=== PATIENT | male | born 1980 | race Caucasian/White ===

== ENCOUNTER 2016-05-14 | Emergency (ER) | payer OTHER | END 2016-05-14 10:50 | disposition home or self-care (01) ==

== ENCOUNTER 2017-12-16 10:14 | Emergency (ER) | payer OTHER ==
[2017-12-16 10:35] VITALS: BP 154/103
--- NOTE | 2017-12-16 13:28 | ED Physician Documentation ---
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 for 18 years. He has subacute depression. Fleeting thoughts of suicidal ideation without plan. He also wonders if he has ADD because for a long time he has trouble listening to people.) Review of Systems Constitutional: denies: Fever, Chills Cardiac: denies: Chest pain / pressure, Palpitations Respiratory: denies: Dyspnea, Cough PD PAST MEDICAL HISTORY - Past Medical History Cardiovascular: High cholesterol - Past Surgical History Past Surgical History: No - Present Medications Home Medications: Ambulatory Orders Medication Instructions Recorded Confirmed Ibuprofen [Motrin] 800 mg PO Q8H PRN #30 tablet 05/14/16 - Allergies Allergies/Adverse Reactions: Allergies Allergy/AdvReac Type Severity Reaction Status Date / Time codeine AdvReac Cramps Verified 12/16/17 10:35 - Social History Does the pt smoke?: No Smoking Status: Never smoker Does the pt drink ETOH?: Yes Does the pt have substance abuse?: No - Immunizations Immunizations are current?: Yes PD ED PE NORMAL - Vitals Vital signs reviewed: Yes - General General: Alert and oriented X 3, No acute distress - HEENT HEENT: PERRL, EOMI - Neuro Neuro: Alert and oriented X 3, sky cap 2-12 intact Eye Opening: Spontaneous Motor: Obeys Commands Verbal: Oriented GCS Score: 15 - Psych Psych: Normal mood, Normal affect Results - Vitals Vitals: Vital Signs - 24 hr 12/16/17 10:31 Temperature 36.6 C Heart Rate 90 Respiratory 16 Rate Blood Pressure 154/103 H O2 Saturation 96 Oxygen O2 Source Room air PD MEDICAL DECISION MAKING - ED course ED course: 37-year-old gentleman without acute complaints presents with depression. Some fleeting vague suicidal ideation without plan. We discussed potential admission which he declined. [place] evaluation and treatment. - Sepsis Event Vital Signs: Vital Signs - 24 hr 12/16/17 10:31 Temperature 36.6 C Heart Rate 90 Respiratory 16 Rate Blood Pressure 154/103 H O2 Saturation 96 Oxygen O2 Source Room air Departure - Departure Disposition: 01 Home, Self Care Clinical Impression: Depression Qualifiers: Depression Type: dysthymia Qualified Code(s): F34.1 - Dysthymic disorder Condition: Good Record reviewed to determine appropriate education?: Yes Instructions: ED Depression Comments: Return anytime if worse or if you feel like you do want to explore hospitalization. [place] and further evaluation and treatment. CALL [facility] [phone] OR [phone] OR [phone] Your blood pressure was elevated today on check into the emergency department. This does not mean that you have hypertension, it is a common phenomenon to come to the emergency department and have elevated blood pressure. I recommend that you see your primary care physician within the week to have it rechecked when you are feeling better.
== END 2017-12-16 13:34 | disposition home or self-care (01) ==
LOC: ED 10:14
DX: F34.1 Dysthymic disorder (principal); R45.851 Suicidal ideations; R03.0 Elevated blood-pressure reading, without diagnosis of hypertension
CPT/HCPCS: 80053; 80307; 80320; 80329; 83690; 84443; 85025; 99283

== ENCOUNTER 2017-12-26 13:52 | Emergency (ER) | payer OTHER ==
--- NOTE | 2017-12-26 14:40 | XRAY Report ---
Reason: trauma, fall. shoulder pain, limited rom. Procedure Date: 12/26/2017 Accession Number: [id number] / [id number] Procedure: XR - Shoulder 3 View LT CPT Code: FULL RESULT: EXAM: LEFT SHOULDER RADIOGRAPHY EXAM DATE: 12/26/2017 02:30 PM. CLINICAL HISTORY: Trauma, fall. Shoulder pain, limited rom. COMPARISON: None. TECHNIQUE: 3 views. FINDINGS: Bones: Normal. No fracture or bone lesion. Joints: The glenohumeral and acromioclavicular joints are normal. Soft tissues: Clear visualized lung. IMPRESSION: Normal shoulder radiography. [facility]
--- NOTE | 2017-12-26 15:22 | ED Physician Documentation ---
PD HPI UPPER EXT INJURY - Stated complaint Stated Complaint: LEFT SHOULDER INJ - Chief complaint Chief Complaint: Ext Problem - History obtained from History obtained from: Patient - History of Present Illness Location: Left, Shoulder Type of injury: Fall (playing kickball and landed onto left shoulder laterally.) Timing - onset: Yesterday Timing - duration: Days (1) Timing - details: Abrupt onset, Still present Worsened by: Moving, Palpating (at AC area) Associated symptoms: No: Weakness, Numbness, Tingling, Swelling Similar symptoms before: Has not had sx before Recently seen: Not recently seen Review of Systems Skin: denies: Abrasion (s), Laceration (s) Neurologic: denies: Focal weakness, Numbness PD PAST MEDICAL HISTORY - Past Medical History Cardiovascular: High cholesterol - Past Surgical History Past Surgical History: No - Present Medications Home Medications: Ambulatory Orders Medication Instructions Recorded Confirmed Ibuprofen [Motrin] 800 mg PO Q8H PRN #30 tablet 05/14/16 Ibuprofen [Motrin] 600 mg PO TID #30 tab 12/26/17 Tramadol HCl 50 mg PO Q6H PRN #20 tablet 12/26/17 - Allergies Allergies/Adverse Reactions: Allergies Allergy/AdvReac Type Severity Reaction Status Date / Time codeine AdvReac Cramps Verified 12/26/17 14:02 - Social History Does the pt smoke?: No Smoking Status: Never smoker Does the pt drink ETOH?: Yes Does the pt have substance abuse?: No - Immunizations Immunizations are current?: Yes PD ED PE NORMAL - Vitals Vital signs reviewed: Yes - General General: Alert and oriented X 3, No acute distress (guarded ROM of the left shoulder.), Well developed/nourished - Neck Neck: Supple, no meningeal sign, No bony TTP, No adenopathy - Derm Derm: Normal color, Warm and dry - Extremities Extremities: Other (Left shoulder tender at AC area mainly. No deformity. Pain with ROM of the shoulder but mostly abduction and extension. Not as much with internal rotation nor flexion. ) - Neuro Neuro: Alert and oriented X 3, No motor deficit, No sensory deficit, Normal speech Results - Vitals Vitals: Vital Signs - 24 hr 12/26/17 13:59 Temperature 35.7 C L Heart Rate 115 H Respiratory 20 Rate Blood Pressure 154/113 H O2 Saturation 97 Oxygen O2 Source Room air - Rads (name of study) left shoulder Radiology: Prelim report reviewed (no fractures nor separation. ) PD MEDICAL DECISION MAKING - ED course Complexity details: reviewed results, considered differential (his symptoms and exam are most c/w AC injury and not as much rotator cuff. ), d/w patient Departure - Departure Disposition: 01 Home, Self Care Clinical Impression: Fall from slip, trip, or stumble Qualifiers: Encounter type: initial encounter Qualified Code(s): W01.0XXA - Fall on same level from slipping, tripping and stumbling without subsequent striking against object, initial encounter Acromioclavicular (AC) joint injury Qualifiers: Encounter type: initial encounter Laterality: left Qualified Code(s): S49.92XA - Unspecified injury of left shoulder and upper arm, initial encounter Condition: Stable Record reviewed to determine appropriate education?: Yes Instructions: ED Sprain AC Joint Follow-Up: KIARA AMOR MD [Primary Care Provider] - Prescriptions: Ibuprofen [Motrin] 600 mg PO TID #30 tab Tramadol HCl 50 mg PO Q6H PRN #20 tablet PRN Reason: Pain Comments: Use the sling for the next week or so to reduce shoulder movement and discomfort. Do gentle range of motion of the shoulder several times a day however so does not stiffen up. No overhead reaching, push pull nor lifting with that arm for a week. Follow-up with your primary care next week, call tomorrow for an appointment. Ibuprofen 3 times a day. Add Tylenol if needed for pains. I think you have an injury of the AC joint more than the rotator cuff. This likely will take several weeks to improve. Discharge Date/Time: 12/26/17 15:53
[2017-12-26] MEDS ORDERED: IBUPROFEN 600 MG TABLET PO STA (15:38)
[2017-12-26] MEDS ORDERED: ACETAMINOPHEN 325 MG TABLET PO STA (15:38)
[2017-12-26 15:55] VITALS: BP 140/98
== END 2017-12-26 15:53 | disposition home or self-care (01) ==
LOC: ED 13:52
DX: S49.92XA Unspecified injury of left shoulder and upper arm, initial encounter (principal); W18.30XA Fall on same level, unspecified, initial encounter; Y93.69 Activity, other involving other sports and athletics played as a team or group
CPT/HCPCS: 73030; 99283; A9270

== ENCOUNTER 2020-10-25 10:10 | Outpatient (CLI) | payer OTHER ==
--- NOTE | 2020-10-25 14:08 | MRI Report ---
PROCEDURE: Shoulder LT W/O INDICATIONS: PAIN IN LEFT SHOULDER TECHNIQUE: Noncontrast oblique coronal T2 fast spin echo with fat saturation, oblique sagittal T1 spin echo and T2 fast spin echo with fat saturation, axial T1 spin echo and T2 fast spin echo with fat saturation t hrough the shoulder. COMPARISON: None. FINDINGS: Rotator cuff: Supraspinatus tendinopathy with partial thickness articular and bursal sided tear. No definite full-t hickness or large retracted defect. Infraspinatus tendinopathy with mild articular and bursal surface fraying although not well evaluated secondary to signal dropout on the coronal pulse sequence. Teres minor appears intact. Subscapularis tendon appears intact. No atrophy of the rotator cuff muscles. Bones and bursae: No bone marrow contusions or fractures. Moderate acromioclavicular joint degeneration. The acromion demonstrates conventional anatomy, without an os acromiale. Moderate subacromial/subdeltoid bursal fluid is present. Capsule and soft tissues: Labrum: Incidental sublabral foramen. Ill-defined tear of the anteroinferior segment, with small vinod cent 2-3 mm paralabral cysts seen on image 18/501. There is mild degenerative segmental change in the adjacent glenoid. The inferior labrum is not well seen due to signal dropout on the coronal pulse se quences. The inferior glenohumeral ligament is also not well seen. Biceps: Long head biceps tendon appears intact. Rotator interval: Normal signal intensity. Coracohumeral ligament: Intact. IMPRESSION: Partial thickness rotator cuff tear as above. No muscle atrophy seen. Moderate subacromial-subdeltoid bursitis Ill-defined signal changes likely reflecting chronic tear of the anteroinferior segment of the labrum with adjacent small paralabral cysts. Suboptimal evaluation secondary to signal dropout on the coronal pulse sequence as described above. Reviewed by: Cesar Anand MD on 10/25/2020 2:06 PM PDT Approved by: Cesar Anand MD on 10/25/2020 2:06 PM PDT Station ID: [id number]
== END 2020-10-25 10:11 | disposition home or self-care (01) ==
LOC: DI 10:10
DX: M75.112 Incomplete rotator cuff tear or rupture of left shoulder, not specified as traumatic (principal); M75.52 Bursitis of left shoulder

== ENCOUNTER 2020-11-04 10:29 | Outpatient (CLI) | payer OTHER ==
[2020-11-04 11:22] VITALS: BP 136/90
--- NOTE | 2020-11-04 11:22 | SLEEP CARE CONSULTATION ---
Information from patient questionnaire entered by Neetu Mares. I have reviewed and concur with the information entered by Neetu Mares. This document represents the service I personally performed and the decisions made by me, Alysha Castillo ARNP. History of Present Illness Service Date and Time: 11/04/2020 1029 Reason for Visit: New patient, Previously diagnosed sleep apnea (), sleep apnea on CPAP therapy Chief Complaint: reports: Unrefreshed sleep, Snoring, Excessive daytime sleepiness, Observed pauses in breathing, Fatigue, Frequent awakenings at night Date of Onset: 7 years Usual bedtime: 10-11 pm Time it takes to fall asleep: 15-20 minutes Snores at night: Yes Observed to quit breathing while asleep: Yes Sleeps alone due to snoring: No Number of times waking at night: 3-4 Reasons for waking at night: reports: Snoring, Pain, Other (noise) Toss, Turn, or Twitch while sleeping: Yes Recalls having dreams: Yes Usually gets out of bed at: 7-8 am Feels refreshed in the morning: No Morning headache: Yes (resolves after an hour or so; when doesn't use PAP) Sleepy or fatigued during the day: Yes Ever fallen asleep while driving: No Takes day naps: No Dreams during day naps: No Prior sleep studies: Yes Year and Where: unsure Additional HPI information: THEO PURI was diagnosed to have mild obstructive sleep apnea-hypopnea syndrom e, AHI 6.3, and comes in today to establish care for CPAP therapy. - Parasomnia Symptoms Ever been unable to move upon waking from sleep: No Walks in sleep: No Talks in sleep: Yes Ever felt weak in the knees when startled or emotional: Yes Bothered by creepy, crawly, restless sensations in legs: No Problems with memory or concentration: Yes CPAP Compliance Data Compliance data discussion: He has been on CPAP since about . He was using a nasal cushion mask. He was getting supplies from [facility] but has not gotten any for a long time. 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 He did not have supplies to be able to continue using his device. When able to use his device he states he would use nightly for 6-8 hours. He thinks his pressure is about 5 cmH2O but did not bring in his memory chip today. Subjective Missed days of use due to: reports: travel (deployment), other (supplies issues) Patient concerns: reports: mask discomfort (nasal cushion tends to irritate under nose; would like to try a full face mask). denies: aerophagia, air blowing in eyes, mask leak noise, condensation in mask/hose, nasal congestion, dry mouth, nose, throat, epistaxis, other Observed to snore while using device: No Current pressure setting perceived as: comfortable On therapy, patient: reports: sleeping better, awakening more refreshed, being more awake and alert during the day, more rested overall. denies: drowsiness while driving Initial Clinton Sleepiness Scale score: 15 (in 2020) Past Medical History Past Medical History: reports: Claustrophobia Social History The patient's occupation is a Active . Patient is and lives in [place]. Have you smoked in the past 12 months: No Cigarettes per day (20/pack): 20 Years of smokin Quit date: September 2020 Smoking Pack Years: 20.0 Alcohol use: Yes Alcohol amount and frequency: 2-3 drinks 2-3 times a week Caffeine use: Yes Caffeine amount and frequency: 40 oz of coffee daily Family History Family history of sleep disordered breathing: Yes (parents have sleep apnea, untreated; mom ) Family Hx Sleep Apnea: Mother: Snoring, Sleep apnea - Untreated, Father: Snoring, Sleep apnea - Untreated Allergies and Home Medications Drug allergies reviewed: Yes (codiene) Home medication list reviewed: Yes Allergy and home medication list: Wellbutrin, taken mostly to stop smoking Review of Systems Weight gain over past 5 years: 20 Weight loss over past 5 years: 48 Cardiovascular: reports: leg or foot swelling. denies: high blood pressure Gastrointestinal: reports: heartburn Neurological: reports: headaches, head trauma Psychiatric: reports: mood disorder Ear/Nose/Throat: reports: nasal congestion, sinus problems, wisdom teeth removed. denies: tonsillectomy Endocrine: reports: sluggishness, too hot or cold Musculoskeletal: reports: joint pain, neck pain, mobility problems Physical Exam Blood Pressure: 136/90 Cuff size: wrist Heart Rate: 82 O2 Saturation: 98 Height: 6 ft 2 in Weight: 209 lb Body Mass Index: 26.8 BMI Classification: Overweight Heart: regular rate and rhythm Lungs: clear bilaterally Impression and Plan 1. Obstructive Sleep Apnea-Hypopnea Syndrome, mild, with unknown treatment compliance and unknown apnea control. He comes in to re-establish care. The patient states that he has better sleep quality and is more rested overall when able on CPAP therapy. Theo has not been able to use his device because he does not have supplies and was on deployment since March. The DME company he was using in [facility] has since closed down and he has not been able to get any replacement supplies for over 7 months. We will fax order to [employer] for supplies. I will then have him follow up for a compliance visit. Theo did not bring in his memory card because he has not been able to use the device without supplies. I do not know his current pressure settings. We will try to obtain this as well. Patient wants to be able to continue use of his device as soon as possible because of its benefits. Patient voiced understanding and agreement with plan. Patient's apnea severity and rationale for treatment to reduce apnea, improve sleep quality and reduce cardiovascular and cerebrovascular events was reviewed. He was encouraged to try to lose weight to reduce apneas and improve his overall health. * Update supplies * Notify me if snoring with mask or feeling that the pressure is too much or too little * Attempt to lose weight * Call this office if any problems using CPAP * Return for follow up one month after he obtains supplies to restart therapy, or sooner if concerns arise Counseling Topics: Spare mask, Weight loss health impact Visit Type: In Office Time Spent with Patient (minutes): 30 Provider Statement: I spent 100% of the Face to Face Visit with the patient with greater than 50% spent counseling the patient and coordination of care.
== END 2020-11-04 10:30 | disposition home or self-care (01) ==
LOC: SC 10:29
PROVIDERS: ATTEND Nurse Practitioner Family
DX: G47.33 Obstructive sleep apnea (adult) (pediatric) (principal)
CPT/HCPCS: 99203; 99212

== ENCOUNTER 2020-12-05 13:00 | Outpatient (CLI) | payer OTHER ==
--- NOTE | 2020-12-05 13:45 | XRAY Report ---
PROCEDURE: Shoulder 3 View LT INDICATIONS: LEFT SHOULDER PAIN TECHNIQUE: 3 views of the shoulder were acquired. COMPARISON: None. FINDINGS: Bones: Small ossification is noted adjacent to the distal clavicle. Moderate acromioclavicular narrow ing. No suspicious bony lesions. Visualized ribs appear intact. Soft tissues: No suspicious soft tissue calcifications. IMPRESSION: Small ossification adjacent to the distal clavicle possibly avulsion injury in the setti ng of trauma. Reviewed by: Sandra Miranda MD on 12/05/2020 1:44 PM PDT Approved by: Sandra Miranda MD on 12/05/2020 1:44 PM PDT Station ID: [id number]
== END 2020-12-05 23:59 | disposition home or self-care (01) ==
LOC: DI.N 13:00
PROVIDERS: ATTEND Physician Assistant
DX: M25.512 Pain in left shoulder (principal); R93.6 Abnormal findings on diagnostic imaging of limbs

== ENCOUNTER 2022-01-16 06:18 | Emergency (ER) | payer OTHER ==
[2022-01-16] MEDS ORDERED: ALPRAZolam 0.25 MG TABLET PO STA (06:54)
--- NOTE | 2022-01-16 06:58 | ED Physician Documentation ---
PD HPI DYSPNEA - Stated complaint Stated Complaint: SOA - Chief complaint Chief Complaint: Resp - History obtained from History obtained from: Patient - Additional information Additional information: The patient comes to the emergency department chief complaint of dyspnea and anxiety. He states that he has been having episodes over the last 2 weeks that seem random, in which he either wakes up feeling as though he cannot breathe, or suddenly begins to feel anxious and short of breath. He states that the episodes last for some minutes and then resolved on their own. He states it seems as though he began to have this when the smoke was very heavy. He states they were camping and it was very smoky where they were and he woke up the middle of the night feeling so could not breathe. He states his has panic attacks and she gave him her inhaler and told him to try to breathe through it. Patient states he does not really feel like the inhaler physically helped him but feeling as though he could do something about the sense of shortness of breath was more helpful than anything. He states he also had another attack when he was under a building wearing a respirator. However, when he could see the daylight from under the building, he was able to calm himself down in bed as well. The patient states that today, he was in his car in line at the coffee stand and he suddenly began to feel a sensation of warmth that traveled up from his lower extremities and to his trunk and face. He states at the same time, he began to feel as though his heart was racing and that he was short of breath. He does note that he did not sleep well last night, and sometimes when he has slept very well he has not had the panic attacks at all. Patient has no prior history of panic attacks. He states that he retired from the [employer] nearly a year ago and actually is felt less stressed out and happier since doing so. He quit smoking after about 20 years last February but has not had any lung issues stemming from this that he knows of. He does smoke marijuana on a fairly regular basis. The patient has been working for the [employer] doing [employer] and is not aware of having had any chemical exposures. He states that occasionally he is exposed to situations where there have been rodents but he wears a respirator. He states he is otherwise fairly healthy denies any other complaints at this time. No swelling in his lower extremities. No history of DVT or PE. The patient states he is feeling quite a bit better after his episode this morning but does have a persistent sense that no matter how deep of breath he takes, he does not feel satisfied that he has had enough air. Review of Systems Ten Systems: 10 systems reviewed and negative Constitutional: reports: Reviewed and negative Eyes: reports: Reviewed and negative Ears: reports: Reviewed and negative Nose: reports: Reviewed and negative Throat: reports: Reviewed and negative Cardiac: reports: Palpitations Respiratory: reports: Dyspnea GI: reports: Reviewed and negative : reports: Reviewed and negative Skin: reports: Reviewed and negative Musculoskeletal: reports: Reviewed and negative Neurologic: reports: Reviewed and negative Psychiatric: reports: Reviewed and negative Endocrine: reports: Reviewed and negative Immunocompromised: reports: Reviewed and negative PD PAST MEDICAL HISTORY - Past Medical History Past Medical History: No Cardiovascular: High cholesterol - Past Surgical History Past Surgical History: No - Present Medications Home Medications: Ambulatory Orders Medication Instructions Recorded Confirmed Atorvastatin [Lipitor] 5 mg PO DAILY 01/16/22 01/16/22 - Allergies Allergies/Adverse Reactions: Allergies Allergy/AdvReac Type Severity Reaction Status Date / Time codeine AdvReac Cramps Verified 01/16/22 06:25 - Social History Does the pt smoke?: No Smoking Status: Never smoker Does the pt drink ETOH?: Yes Does the pt have substance abuse?: No - Immunizations Immunizations are current?: Yes PD ED PE NORMAL - Vitals Vital signs reviewed: Yes - General General: Alert and oriented X 3, No acute distress, Well developed/nourished - HEENT HEENT: Atraumatic, PERRL, EOMI, Moist mucous membranes - Neck Neck: Supple, no meningeal sign - Cardiac Cardiac: RRR, No murmur, Strong equal pulses - Respiratory Respiratory: No respiratory distress, Clear bilaterally - Abdomen Abdomen: Soft, Non tender, Non distended - Derm Derm: Normal color, Warm and dry, No rash - Extremities Extremities: No deformity, No edema, No calf tenderness / cord - Neuro Neuro: Alert and oriented X 3, foot orthopedist 2-12 intact, Normal speech - Psych Psych: Normal mood, Normal affect Results - Vitals Vitals: Vital Signs - 24 hr 01/16/22 06:21 Temperature 36.2 C L Heart Rate 69 Respiratory 18 Rate Blood Pressure 136/86 H O2 Saturation 99 Oxygen O2 Source Room air PD MEDICAL DECISION MAKING - ED course Complexity details: reviewed results, re-evaluated patient, considered differential, d/w patient ED course: The patient was worked up with EKG, which was unremarkable. Chest x-ray and laboratory studies including TSH and D-dimer were also ordered and are pending at this time. The patient was amenable to trying a dose of Xanax and seeing if this helps his symptoms. Patient will be signed out to Dr. Wade at change of shift, pending results and final disposition.
[2022-01-16 07:29] LABS: ALBUMIN 4.5 g/dL (3.2-5.5); ALBUMIN/GLOBULIN RATIO 1.8 (1.0-2.2); BILIRUBIN,TOTAL 0.6 mg/dL (0.2-1.0); CALCIUM 9.1 mg/dL (8.5-10.3); CREATININE 0.8 mg/dL (0.6-1.2); POTASSIUM 3.7 mmol/L (3.5-5.0)
[2022-01-16 07:35] LABS: BASOPHILS % (AUTO) 0.4 %; EOSINOPHILS # (AUTO) 0.1 10^3/uL (0.0-0.7); EOSINOPHILS % (AUTO) 0.9 %; HCT - HEMATOCRIT 44.4 % (42.0-52.0); LYMPHOCYTES # (AUTO) 1.5 10^3/uL (1.5-3.5); LYMPHOCYTES % (AUTO) 18.7 %; MEAN CORPUSCULAR HEMOGLOBIN 29.9 pg (27.0-31.0); MEAN CORPUSCULAR HGB CONC 33.8 g/dL (32.0-36.0); MEAN CORPUSCULAR VOLUME 88.6 fL (80.0-94.0); MEAN PLATELET VOLUME 9.7 fL (7.4-11.4); MONOCYTES # (AUTO) 0.5 10^3/uL (0.0-1.0); MONOCYTES % (AUTO) 6.4 %; NEUTROPHILS # (AUTO) 5.7 10^3/uL (1.5-6.6); NEUTROPHILS % (AUTO) 73.2 %; PLT - PLATELET COUNT 261 10^3/uL (130-450); RED BLOOD COUNT 5.01 10^6/uL (4.70-6.10); RED CELL DISTRIBUTION WIDTH 12.4 % (12.0-15.0); WHITE BLOOD COUNT 7.8 x10^3/uL (4.8-10.8)
--- NOTE | 2022-01-16 08:10 | ED Physician Documentation ---
ED Addendum - Addendum Addendum: 01/16/22 08:10 The patient's blood tests resulted back normal. No signs of significant cause for his shortness of breath today. He is feeling good on reexam without any dyspnea chest pain or lightheadedness. Unclear the cause of it. Disposition: The patient is discharged home in stable condition. Diagnosis: Episode of dyspnea uncertain cause.
[2022-01-16 08:22] VITALS: BP 130/97
--- NOTE | 2022-01-16 08:28 | XRAY Report ---
PROCEDURE: Chest 1 View X-Ray INDICATIONS: chest pain TECHNIQUE: One view of the chest was acquired. COMPARISON: None FINDINGS: Surgical changes and devices: None. Lungs and pleura: No pleural effusions or pneumothorax. Lungs are clear. Costophrenic angles are n ot included within the [id number]. Mediastinum: Mediastinal contours appear normal. Heart size is normal. Bones and chest wall: No suspicious bony lesions. Overlying soft tissues appear unremarkable. IMPRESSION: No acute pulmonary process, noting costophrenic angles are not included within the [id number]. Reviewed by: Sandra Miranda MD on 01/16/2022 8:27 AM PDT Approved by: Sandra Miranda MD on 01/16/2022 8:27 AM PDT Station ID: [id number]
== END 2022-01-16 08:21 | disposition home or self-care (01) ==
LOC: ED 06:18
DX: R06.09 Other forms of dyspnea (principal); Z87.891 Personal history of nicotine dependence
CPT/HCPCS: 36415; 71045; 80053; 83690; 84443; 85025; 85379; 93005; 99283; 99284; A9270

== ENCOUNTER 2022-02-09 16:24 | Emergency (ER) | payer OTHER ==
[2022-02-09] MEDS ORDERED: ALBUTEROL NEB 2.5 MG/3 ML INH STA (17:15)
--- NOTE | 2022-02-09 17:16 | ED Physician Documentation ---
PD HPI URI - Stated complaint Stated Complaint: SOA - Chief complaint Chief Complaint: Resp - History obtained from History obtained from: Patient (41-year-old otherwise healthy gentleman who does vape presents with an upper respiratory illness starting about 2 days ago. He complains of cough, runny nose, scratchy throat, chills. His friend at work had a similar illness.) Review of Systems Ten Systems: 10 systems reviewed and negative Constitutional: reports: Chills, Myalgias, Fatigue. denies: Fever Nose: reports: Rhinorrhea / runny nose Throat: reports: Sore throat Respiratory: reports: Dyspnea, Cough PD PAST MEDICAL HISTORY - Past Medical History Cardiovascular: High cholesterol - Past Surgical History Past Surgical History: No - Present Medications Home Medications: Ambulatory Orders Medication Instructions Recorded Confirmed Albuterol Sulf [Ventolin Hfa 1 - 2 puffs INH Q4HR PRN #1 each 02/09/22 Inhaler] - Allergies Allergies/Adverse Reactions: Allergies Allergy/AdvReac Type Severity Reaction Status Date / Time codeine AdvReac Cramps Verified 02/09/22 16:28 - Social History Does the pt smoke?: No Smoking Status: Never smoker Does the pt drink ETOH?: Yes Does the pt have substance abuse?: No - Immunizations Immunizations are current?: Yes PD ED PE NORMAL - Vitals Vital signs reviewed: Yes - General General: Alert and oriented X 3, No acute distress - HEENT HEENT: Other (Mildly red tonsillar pillars without exudates or swelling, nontender tonsils, normal TMs) - Neck Neck: Supple, no meningeal sign, No bony TTP - Cardiac Cardiac: RRR, No murmur - Respiratory Respiratory: No respiratory distress, Clear bilaterally - Abdomen Abdomen: Non tender - Derm Derm: No rash - Neuro Neuro: Alert and oriented X 3, Normal speech Results - Vitals Vitals: Vital Signs - 24 hr 02/09/22 16:25 Temperature 36.9 C Heart Rate 96 Respiratory 16 Rate Blood Pressure 150/96 H O2 Saturation 97 Oxygen O2 Source Room air - Labs Labs: Laboratory Tests 02/09/22 16:30 Nasal Adenovirus (PCR) NOT DETECTED Nasal B. parapertussis DNA (PCR) NOT DETECTED Nasal Coronavir 229E PCR NOT DETECTED Nasal Coronavir HKU1 PCR NOT DETECTED Nasal Coronavir NL63 PCR NOT DETECTED Nasal Coronavir OC43 PCR NOT DETECTED Nasal Enterovir/Rhinovir PCR NOT DETECTED Nasal Influenza B PCR NOT DETECTED Nasal Influenza A PCR NOT DETECTED Nasal Parainfluen 1 PCR NOT DETECTED Nasal Parainfluen 2 PCR NOT DETECTED Nasal Parainfluen 3 PCR NOT DETECTED Nasal Parainfluen 4 PCR NOT DETECTED Nasal RSV (PCR) NOT DETECTED Nasal B.pertussis DNA PCR NOT DETECTED Nasal C.pneumoniae (PCR) NOT DETECTED Barber Human Metapneumo PCR NOT DETECTED Nasal M.pneumoniae (PCR) NOT DETECTED Nasal SARS-CoV-2 (PCR) DETECTED A PD MEDICAL DECISION MAKING - ED course ED course: 41-year-old gentleman presents with URI with shortness of breath. Did improve with albuterol neb here. He was found to be positive for COVID and he understands the need for quarantine. We did discuss the potential for antiviral therapy which he declined. Departure - Departure Disposition: 01 Home, Self Care Clinical Impression: COVID-19 Condition: Good Record reviewed to determine appropriate education?: Yes Instructions: ED Viral Syndrome Prescriptions: Albuterol Sulf [Ventolin Hfa Inhaler] 1 - 2 puffs INH Q4HR PRN #1 each PRN Reason: Shortness Of Air/Wheezing Comments: You can take Tylenol and/or ibuprofen as needed for the aches and pains, and also the Sudafed for the congestion. In addition I am prescribing an albuterol inhaler to be used as needed for shortness of breath. Return for new or worsening symptoms. You need to quarantine through Saturday strictly and then wear a mask for another week after that.
[2022-02-09 17:27] LABS: CORONAVIRUS 229E-RESP PCR NOT DETECTED; CORONAVIRUS HKU1-RESP PCR NOT DETECTED; CORONAVIRUS NL63-RESP PCR NOT DETECTED; CORONAVIRUS OC43-RESP PCR NOT DETECTED; HUMAN METAPNEUMOVIRUS NOT DETECTED; INFLUENZA A- RESP PCR PANEL NOT DETECTED; RHINOVIRUS/ENTEROVIRUS NOT DETECTED
[2022-02-09 17:29] LABS: B. PARAPERTUSSIS- RESP PCR PAN NOT DETECTED; B. PERTUSSIS- RESP PCR PANEL NOT DETECTED; C. PNEUMONIAE- RESP PCR PANEL NOT DETECTED; INFLUENZA B - RESP PCR PANEL NOT DETECTED; M. PNEUMONIAE- RESP PCR PANEL NOT DETECTED; PARAINFLUENZA VIRUS 1 NOT DETECTED; PARAINFLUENZA VIRUS 2 NOT DETECTED; PARAINFLUENZA VIRUS 3 NOT DETECTED; PARAINFLUENZA VIRUS 4 NOT DETECTED; RSV- RESP PCR PANEL NOT DETECTED; SARS-CoV-2 -RESP PCR PANEL DETECTED
[2022-02-09 18:35] VITALS: BP 148/91
== END 2022-02-09 18:34 | disposition home or self-care (01) ==
LOC: ED 16:24
DX: U07.1 COVID-19 (principal)
CPT/HCPCS: 87633; 94640; 94664; 99283

== ENCOUNTER 2023-07-20 09:18 | Emergency (ER) | payer OTHER ==
[2023-07-20 09:57] LABS: BASOPHILS # (AUTO) 0.1 10^3/uL (0.0-0.1); BASOPHILS % (AUTO) 0.3 %; EOSINOPHILS % (AUTO) 0.2 %; HCT - HEMATOCRIT 46.8 % (42.0-52.0); HGB - HEMOGLOBIN 15.8 g/dL (14.0-18.0); LYMPHOCYTES % (AUTO) 13.1 %; MEAN CORPUSCULAR HEMOGLOBIN 30.3 pg (27.0-31.0); MEAN CORPUSCULAR HGB CONC 33.8 g/dL (32.0-36.0); MEAN CORPUSCULAR VOLUME 89.7 fL (80.0-94.0); MEAN PLATELET VOLUME 9.6 fL (7.4-11.4); MONOCYTES # (AUTO) 0.7 10^3/uL (0.0-1.0); MONOCYTES % (AUTO) 4.8 %; NEUTROPHILS # (AUTO) 12.2 10^3/uL (1.5-6.6); PLT - PLATELET COUNT 280 10^3/uL (130-450); RED BLOOD COUNT 5.22 10^6/uL (4.70-6.10); RED CELL DISTRIBUTION WIDTH 12.3 % (12.0-15.0)
[2023-07-20 10:29] LABS: ALBUMIN 4.6 g/dL (3.2-5.5); ALBUMIN/GLOBULIN RATIO 1.6 (1.0-2.2); BILIRUBIN,TOTAL 0.6 mg/dL (0.2-1.0); CREATININE 0.9 mg/dL (0.6-1.3); TOTAL PROTEIN 7.5 g/dL (6.4-8.9)
--- NOTE | 2023-07-20 11:05 | ED Physician Documentation ---
PD HPI NVD - Stated complaint Stated Complaint: N/V, GIRON, FATIGUE - Chief complaint Chief Complaint: General - History obtained from History obtained from: Patient, Family - History of Present Illness Timing - onset: Today Timing - duration: Hours Timing - details: Abrupt onset, Still present Associated symptoms: Other (headache and nausea with vomiting.) Contributing factors: Other (New strain of cannabis) Worsened by: Eating Similar symptoms before: Diagnosis (canabis hyperemesis and migraine) Recently seen: Not recently seen - Additonal information Additional information: Theo Carrasco is a 43-year-old male with a history of migraine headaches and a history of cannabis hyperemesis who tried a new strain of cannabis yesterday and this morning he has developed acute nausea and vomiting. He definitely has headache as well. He does state this feels different than his usual problem with migraine. Review of Systems Constitutional: denies: Fever Ears: denies: Ear pain Nose: denies: Congestion Throat: denies: Sore throat Respiratory: denies: Cough GI: reports: Nausea, Vomiting, Diarrhea : denies: Dysuria, Frequency PD PAST MEDICAL HISTORY - Past Medical History Past Medical History: Yes Cardiovascular: High cholesterol - Past Surgical History Past Surgical History: No - Present Medications Home Medications: Ambulatory Orders Medication Instructions Recorded Confirmed Albuterol Sulf [Ventolin Hfa 1 - 2 puffs INH Q4HR PRN #1 each 02/09/22 Inhaler] Ondansetron Odt [Zofran] 4 mg TL Q6H PRN #10 tablet 07/20/23 - Allergies Allergies/Adverse Reactions: Allergies Allergy/AdvReac Type Severity Reaction Status Date / Time codeine AdvReac Cramps Verified 07/20/23 09:33 - Social History Does the pt smoke?: No Smoking Status: Never smoker Does the pt drink ETOH?: Yes Does the pt have substance abuse?: No - Immunizations Immunizations are current?: Yes - POLST Patient has POLST: No PD ED PE NORMAL - Vitals Vital signs reviewed: Yes (normal ) - General General: No acute distress, Well developed/nourished, Other (laying in the position with eyes closed. 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 ) Results - Vitals Vitals: Vital Signs - 24 hr 07/20/23 07/20/23 07/20/23 09:30 11:32 13:00 Temperature 36.0 C L 36.6 C Heart Rate 51 L 60 60 Respiratory 20 16 16 Rate Blood Pressure 125/68 132/84 H 128/82 H O2 Saturation 100 98 100 Oxygen O2 Source Room air - Labs Labs: Laboratory Tests 07/20/23 07/20/23 07/20/23 09:50 10:10 13:10 WBC 15.0 H RBC 5.22 Hgb 15.8 Hct 46.8 MCV 89.7 MCH 30.3 MCHC 33.8 RDW 12.3 Plt Count 280 MPV 9.6 Neut # (Auto) 12.2 H Lymph # (Auto) 2.0 Wilkes # (Auto) 0.7 Eos # (Auto) 0.0 Baso # (Auto) 0.1 Absolute Nucleated RBC 0.00 Nucleated RBC % 0.0 Sodium 138 Potassium 4.0 Chloride 104 Carbon Dioxide 26 Anion Gap 8.0 BUN 17 Creatinine 0.9 Estimated GFR (MDRD) 93 Glucose 181 H Calcium 10.0 Total Bilirubin 0.6 AST 20 ALT 31 Alkaline Phosphatase 79 Total Protein 7.5 Albumin 4.6 Globulin 2.9 Albumin/Globulin Ratio 1.6 Lipase 29 Urine Color YELLOW Urine Clarity CLEAR Urine pH 8.5 H Ur Specific [place]ckett 1.020 Urine Protein NEGATIVE Urine Glucose (UA) NEGATIVE Urine Ketones TRACE Urine Occult Blood NEGATIVE Urine Nitrite NEGATIVE Urine Bilirubin NEGATIVE Urine Urobilinogen 0.2 (NORMAL) Ur Leukocyte Esterase NEGATIVE Ur Microscopic Review NOT INDICATED Urine Culture Comments NOT INDICATED PD Medical Decision Making - ED course Complexity details: reviewed old records, reviewed results, re-evaluated patient, considered differential, d/w patient, d/w family Reviewed Lab Results: We reviewed a complete blood cell count count demonstrated an elevated white blood cell count of 15,000 with normal hemoglobin hematocrit and platelets chemistries with normal electrolytes normal kidney and liver function urinalysis unremarkable. This patient's blood work is consistent with the possibility of cannabis hyperemesis as the etiology for his acute vomiting. Other etiologies also considered include gastroenteritis and migraine headache. ED course: 43-year-old Theo Carrasco presented to the emergency department with acute vomiting and diarrhea after sampling a new form of cannabis. He has had similar symptoms previously. He is treated for his vomiting with IV Inapsine and saline with marked improvement. I discussed the patient with the patient the diagnosis of cannabis hyperemesis and its usual presentations. Departure - Departure Disposition: 01 Home, Self Care Clinical Impression: Cannabis hyperemesis syndrome concurrent with and due to cannabis abuse Condition: Stable Instructions: ED Diet Vomiting Diarrhea Follow-Up: JANESSA Lees [Provider Group] Prescriptions: Ondansetron Odt [Zofran] 4 mg TL Q6H PRN #10 tablet PRN Reason: Nausea / Vomiting Comments: Theo, today it looks like the severe vomiting you are experiencing today is related to cannabis hyperemesis. This is usually a result of excessive cannabis use and its onset and offset are variable. Use of a warm bath or shower can be helpful for symptoms. There are specific agents used to control the nausea associated with this. Today you seem to have responded well to the Inapsine. The recommendation is to abstain from cannabis and I have E scribed some medication to the [facility] in [place] for nausea if you need that the rest of the day today. Forms: PCP List Discharge Date/Time: 07/20/23 13:14
[2023-07-20] MEDS: DROPERIDOL 5 MG/2 ML VIAL IVP STA (11:14)
[2023-07-20] MEDS: SODIUM CHLORIDE 0.9% 1,000 ML IV STA (11:14)
[2023-07-20 13:16] LABS: BILIRUBIN,URINE NEGATIVE (NEGATIVE); GLUCOSE, URINE (UA) NEGATIVE (NEGATIVE); KETONES,URINE (UA) TRACE mg/dL (NEGATIVE); LEUKOCYTE ESTERASE, URINE NEGATIVE (NEGATIVE); NITRITE,URINE NEGATIVE (NEGATIVE); OCCULT BLOOD,URINE NEGATIVE (NEGATIVE); PH,URINE 8.5 PH (5.0-7.5); PROTEIN,URINE NEGATIVE (NEGATIVE); UROBILINOGEN,URINE 0.2 (NORMAL) E.U./dL (NORMAL)
[2023-07-20 13:17] LABS: CLARITY,URINE CLEAR (CLEAR)
[2023-07-20 13:23] VITALS: BP 128/82; O2SAT 100
== END 2023-07-20 13:14 | disposition home or self-care (01) ==
LOC: ED 09:18
DX: R11.2 Nausea with vomiting, unspecified (principal); F12.10 Cannabis abuse, uncomplicated; Z79.899 Other long term (current) drug therapy
CPT/HCPCS: 36415; 80053; 81001; 81003; 83690; 85025; 87086; 96361; 96374; 99284